=== PATIENT | female | born 1980 | race Caucasian/White ===

== ENCOUNTER 2019-02-15 22:36 | Emergency (ER) | payer MEDICAID ==
--- NOTE | 2019-02-16 00:18 | EDM.PDOC ---
ED HPI GENERAL MEDICAL PROBLEM - General Chief Complaint: Lower Extremity Injury/Pain Stated Complaint: FELL OFF A LADDER Time Seen by Provider: 02/15/19 23:35 Source of Information: Reports: Patient, RN Notes Reviewed History Limitations: Reports: No Limitations - History of Present Illness INITIAL COMMENTS - FREE TEXT/NARRATIVE: The patient states that she was about 3 feet up on a ladder in her garage, when her dog struck the ladder, causing the latter to follow over, and her to fall onto the concrete floor, around 14:00. She states that she landed on her buttocks. She states that she is suffering from buttock and sacral pain. She states that she has taken both Tylenol and ibuprofen, but that they are inadequate. She states that she is otherwise uninjured. No prior sacral or buttock injury. The patient drove herself to the ED. The patient does not have a PCP. Treatments CATEGORY CONSULTANT: Reports: Acetaminophen, Other (see below) Other Treatments CATEGORY CONSULTANT: aleve Buttock Pain Score (Numeric/FACES): 8 - Related Data Allergies Allergy/AdvReac Type Severity Reaction Status Date / Time No Known Allergies Allergy Verified 02/15/19 22:51 Home Meds: Home Meds . [No Known Home Meds] 02/15/19 [History] Past Medical History - Past Surgical History GI Surgical History: Reports: Cholecystectomy (2013) Social & Family History - Tobacco Use Smoking Status *Q: Light Tobacco Smoker Years of Tobacco use: 10 Packs/Tins Daily: 0.2 - Caffeine Use Caffeine Use: Reports: Coffee - Alcohol Use Alcohol Use History: No - Recreational Drug Use Recreational Drug Use: No - Living Situation & Occupation Living situation: Reports: Single, with Family Occupation: Unemployed ED ROS GENERAL - Review of Systems Review Of Systems: ROS reveals no pertinent complaints other than HPI. ED EXAM, GENERAL - Physical Exam Exam: See Below Exam Limited By: No Limitations General Appearance: Alert, WD/WN, No Apparent Distress Back Exam: Normal Inspection, Full Range of Motion, Other (No visible abnormality to the lower back or buttocks, such as swelling, erythema, ecchymosis, or abrasion. The patient reports tenderness primarily over the coccygeal and bilateral buttocks, with no sacral tenderness.) Course - Vital Signs Last Recorded V/S: Last Vital Signs Temp Pulse 71 02/15/19 22:48 Resp 18 02/15/19 22:48 BP 150/101 H 02/15/19 22:48 Pulse Ox 100 02/15/19 22:48 - Orders/Labs/Meds Orders: Active Orders 24 hr Category Date Time Status Sacrum Coccyx Min 2V [CR] Stat Exams 02/15/19 23:37 Taken - Re-Assessments/Exams Free Text/Narrative Re-Assessment/Exam: 02/16/19 00:12 3-view radiographs of the sacrum and coccyx appear to be grossly normal. The tip of the coccyx is very grainy, and I cannot say with certainty that there is no fracture, but from what I am able to see, no fracture is seen. Formal read per the Radiologist pending. 02/16/19 00:27 If the patient in fact fell 3 feet onto a concrete floor directly onto her buttocks, I would expect that she would have significant pain, however, I would also expect there to be at least a subtle bruise, erythema, or swelling, and in this patient's case, I see none of that. The patient is pressing me for a stronger medication, telling me the Tylenol and ibuprofen have not been helpful , and when I explained that with negative x-rays, I am not in a position to prescribe opioids, the patient appeared to get angry. She may be drug seeking. I will refer her to the clinic for follow-up. Departure - Departure Time of Disposition: 00:28 Disposition: Home, Self-Care 01 Condition: Good Clinical Impression: Traumatic buttock pain - Discharge Information *PRESCRIPTION DRUG MONITORING PROGRAM REVIEWED*: No *COPY OF PRESCRIPTION DRUG MONITORING REPORT IN PATIENT JILL: No Referrals: Uzma Rizvi PA [Physician Service [facility]] - Forms: ED Department Discharge Additional Instructions: You were seen in the emergency room for sacral and buttock pain after falling off a ladder. Workup in the ER included x-rays of your pelvis, sacrum, and coccyx, which returned normal. No broken bones or dislocations were found. On examination, no abrasions, swelling, or bruising was found. We recommend that you take [id number] ibuprofen, 3 tablets (600 mg) every 8 hours, with food, as needed for discomfort. Consider also applying an ice pack to the painful areas. Follow-up with ALLYSON Magdaleno, or one of the other providers in the clinic, as needed. If any other problems, please do not hesitate to return to the ER. - My Orders Last 24 Hours: My Active Orders 02/15/19 23:37 Sacrum Coccyx Min 2V [CR] Stat - Assessment/Plan Last 24 Hours: My Active Orders 02/15/19 23:37 Sacrum Coccyx Min 2V [CR] Stat
--- NOTE | 2019-02-17 13:57 | CR ---
Sacrum and coccyx: Three views of the sacrum and coccyx were obtained. Sacroiliac joints are normal. No discrete fracture or other abnormality is seen. Impression: 1. No abnormality is appreciated on sacrum and coccyx study. Diagnostic code #1
== END 2019-02-16 00:30 | disposition home or self-care (01) ==
LOC: JD.ED 22:36
DX: M79.10 Myalgia, unspecified site (principal); F17.210 Nicotine dependence, cigarettes, uncomplicated; Z90.49 Acquired absence of other specified parts of digestive tract; W11.XXXA Fall on and from ladder, initial encounter
CPT/HCPCS: 72220; 72220-26; 99282; 99283-25